=== PATIENT | female | born 1990 | race Caucasian/White ===

== ENCOUNTER 2020-04-15 20:27 | Emergency (ER) | payer BC ==
[2020-04-15] MEDS ORDERED: Lidocaine 1% 10 ML MDV INJECT ONE (20:50)
--- NOTE | 2020-04-15 20:52 | EDM.PDOC ---
ED HPI GENERAL MEDICAL PROBLEM - General Chief Complaint: Laceration Stated Complaint: HAND LAC Time Seen by Provider: 04/15/20 20:35 Source of Information: Reports: Patient, RN Notes Reviewed - History of Present Illness INITIAL COMMENTS - FREE TEXT/NARRATIVE: 29 yr old female suffered lac injury R hand playing softball a short time ago. Ball hit hand with resultant lac web space 4th and 5th fingers. Good finger ROM. She does not feel like anything is broken. UTD with tetanus. Right Finger-Little Pain Score (Numeric/FACES): 1 - Related Data Allergies Allergy/AdvReac Type Severity Reaction Status Date / Time No Known Allergies Allergy Verified 04/15/20 20:37 Past Medical History Cardiovascular History: Reports: Heart Murmur Respiratory History: Reports: Asthma - Past Surgical History HEENT Surgical History: Reports: Oral Surgery Social & Family History - Tobacco Use Smoking Status *Q: Never Smoker ED ROS GENERAL - Review of Systems Review Of Systems: See Below Constitutional: Reports: No Symptoms HEENT: Reports: No Symptoms Respiratory: Denies: Shortness of Breath GI/Abdominal: Reports: No Symptoms Musculoskeletal: Reports: Other (lac injury R hand). Denies: Joint Pain Skin: Reports: Other (lac injury R hand) Neurological: Denies: Numbness, Tingling, Weakness ED EXAM, NEURO - Physical Exam Exam: See Below General Appearance: Alert, No Apparent Distress Head Exam: Atraumatic Neck: Supple Respiratory/Chest: No Respiratory Distress Neurological: No Motor/Sensory Deficits Extremities: Other (1 cm shallow but gaping lac injury web space rth and 5th fingers, no bony tenderness, good finger ROM) Skin Exam: Warm, Normal Color ED LACERATION PROCEDURES - Laceration/Wound Repair Right Hand Lac/wound length in cm: 1 Appearance: Linear Anesthetic Type: Local Local Anesthesia - Lidocaine (Xylocaine): 1% Plain Skin Prep: Saline Suture Size: 3-0 # of Sutures: 3 Course - Vital Signs Last Recorded V/S: Last Vital Signs Temp 97.1 F 04/15/20 20:34 Pulse 90 04/15/20 20:34 Resp 16 04/15/20 20:34 BP 153/92 H 04/15/20 20:34 Pulse Ox 97 04/15/20 20:34 - Orders/Labs/Meds Meds: Medications Discontinued Medications Generic Name Dose Route Start Last Admin Trade Name Freq PRN Reason Stop Dose Admin Lidocaine HCl 10 ml 04/15/20 20:50 04/15/20 20:55 Xylocaine 1% INJECT 04/15/20 20:51 10 ml ONETIME ONE Administration Departure - Departure Time of Disposition: 21:12 Disposition: Home, Self-Care 01 Condition: Fair Clinical Impression: Hand laceration Qualifiers: Encounter type: initial encounter Foreign body presence: without foreign body Laterality: right Qualified Code(s): S61.411A - Laceration without foreign body of right hand, initial encounter - Discharge Information Instructions: Laceration Care, Adult, [id number] Referrals: Jen Mascorro [facility] [Primary Care Provider] - Forms: ED Department Discharge Additional Instructions: laceration care instr. Stitches out in about 10 days. Try avoid further injury. Have rechecked any sign of infection. Sepsis Event Note (ED) - Evaluation Sepsis Screening Result: No Definite Risk - Focused Exam Vital Signs: Vital Signs Temp Pulse Resp BP Pulse Ox 04/15/20 20:34 97.1 F 90 16 153/92 H 97
== END 2020-04-15 21:20 | disposition home or self-care (01) ==
LOC: JD.ED 20:27
DX: S61.411A Laceration without foreign body of right hand, initial encounter (principal); W21.07XA Struck by softball, initial encounter; Y93.64 Activity, baseball
CPT/HCPCS: 12001; 99282; J2001

== ENCOUNTER 2022-07-27 12:09 | Inpatient (IN) | payer OTHER ==
[2022-07-27] MEDS: Misoprostol 25 MCG (1/4 of 100 MCG) Tab VAG PRN ×3 (12:09→20:01)
[2022-07-27] MEDS ORDERED: Nalbuphine HCl 10 MG/ 1ML Amp IVPUSH PRN (12:15)
[2022-07-27] MEDS ORDERED: Oxytocin/Lactated Ringers 10 UNIT/1,000 ML BAG IV SCH (12:15)
[2022-07-27] MEDS ORDERED: Lactated Ringers 1,000 ML IV SCH (12:15)
[2022-07-27] MEDS ORDERED: Ondansetron 4 MG/2 ML SDV IVPUSH PRN (12:15)
[2022-07-27] MEDS ORDERED: Sodium Chloride 0.9% 10 ML Syringe FLUSH PRN (12:15)
[2022-07-27] MEDS ORDERED: diphenhydrAMINE 50 MG/ML SDV IVPUSH PRN (14:22)
[2022-07-27] MEDS ORDERED: fentaNYL 100 MCG/2 ML SDV EPIDUR PRN (14:22)
[2022-07-27] MEDS ORDERED: Bupivacaine/fentaNYL/NS 100 ML Bag EPIDUR PRN (14:22)
[2022-07-27] MEDS ORDERED: ePHEDrine 50 MG/ML SDV IVPUSH PRN (14:22)
[2022-07-28] MEDS: Misoprostol 25 MCG (1/4 of 100 MCG) Tab VAG PRN (00:01)
[2022-07-28] MEDS ORDERED: Ampicillin 2 GM in Sodium Chloride 0.9% 100 ML IV ONE (00:30)
[2022-07-28] MEDS ORDERED: Ampicillin 2 GM Vial ONE (03:48)
[2022-07-28] MEDS ORDERED: Sodium Chloride 0.9% 100 ML ONE (03:49)
[2022-07-28] MEDS: Oxytocin/Lactated Ringers 10 UNIT/1,000 ML BAG IV SCH ×2 (04:09→15:19)
[2022-07-28] MEDS: Ampicillin 1 GM in Sodium Chloride 0.9% 100 ML IV SCH ×2 (09:45→13:44)
[2022-07-28] MEDS: Sodium Chloride 0.9% 10 ML Syringe FLUSH SCH (12:01)
[2022-07-28] MEDS ORDERED: Citric Acid/Sodium Citrate Solution 30 ML Cup PO ONE (16:49)
[2022-07-28] MEDS ORDERED: ceFAZolin 2 GM in Sodium Chloride 0.9% 50 ML IV ONE (16:49)
[2022-07-28] MEDS ORDERED: Azithromycin 500 MG in Sodium Chloride 0.9% 250 ML IV ONE (16:49)
[2022-07-28] MEDS ORDERED: Metoclopramide 10 MG/2 ML SDV IVPUSH ONE (16:49)
[2022-07-28] MEDS ORDERED: Metoclopramide 10 MG/2 ML SDV ONE (16:51)
[2022-07-28] MEDS ORDERED: Citric Acid/Sodium Citrate Solution 30 ML Cup ONE (16:51)
[2022-07-28] MEDS ORDERED: Morphine PF 10 MG/10 ML SDV ONE (16:55)
[2022-07-28] MEDS ORDERED: ceFAZolin 2 GM Vial ONE (17:05)
[2022-07-28] MEDS ORDERED: Ondansetron 4 MG/2 ML SDV ONE (17:18)
[2022-07-28] MEDS ORDERED: Lactated Ringers 1,000 ML ONE (17:18)
[2022-07-28] MEDS ORDERED: Dexamethasone 4 MG/ML SDV ONE (17:33)
[2022-07-28] MEDS ORDERED: Misoprostol 200 MCG Tab ONE (17:35)
[2022-07-28] MEDS ORDERED: Carboprost Tromethamine 250 MCG/1 ML Amp ONE (17:37)
[2022-07-28] MEDS ORDERED: Phenylephrine HCl In 0.9% NaCl 1 MG/10 ML Vial ONE (17:42)
[2022-07-28] MEDS ORDERED: ePHEDrine 50 MG/ML SDV ONE (17:43)
[2022-07-28] MEDS ORDERED: Ampicillin 1 GM in Sodium Chloride 0.9% 100 ML IV SCH (17:44)
[2022-07-28] MEDS ORDERED: Ketorolac 30 MG/ML SDV ONE (17:54)
[2022-07-28] MEDS ORDERED: Tranexamic Acid 1,000 MG/10 ML Vial ONE (17:56)
[2022-07-28] MEDS ORDERED: Meperidine 50 MG/ML Vial IVPUSH PRN (18:10)
[2022-07-28] MEDS ORDERED: fentaNYL 100 MCG/2 ML SDV IVPUSH PRN (18:10)
[2022-07-28] MEDS ORDERED: diphenhydrAMINE 50 MG/ML SDV IVPUSH PRN ×2 (18:10→18:16)
[2022-07-28] MEDS ORDERED: Ondansetron 4 MG/2 ML SDV IVPUSH PRN (18:10)
[2022-07-28] MEDS ORDERED: Docusate Sodium 100 MG Cap PO PRN (18:16)
[2022-07-28] MEDS ORDERED: Ondansetron 4 MG/2 ML SDV IV PRN (18:16)
[2022-07-28] MEDS ORDERED: Acetaminophen/oxyCODONE 325-5 MG Tab PO PRN ×2 (18:16)
[2022-07-28] MEDS ORDERED: Dextrose 5%-Lactated Ringers 1,000 ML IV SCH (18:16)
[2022-07-28] MEDS ORDERED: ePHEDrine 50 MG/ML SDV IVPUSH PRN (18:16)
[2022-07-28] MEDS ORDERED: Naloxone 0.4 MG/ML SDV IVPUSH PRN (18:16)
[2022-07-29] MEDS: Ketorolac 30 MG/ML SDV IVPUSH SCH ×3 (00:10→13:50)
[2022-07-29] MEDS: Enoxaparin 40 MG/0.4 ML Syringe SUBCUT SCH (10:26)
[2022-07-29] MEDS: Ibuprofen 600 MG Tab PO PRN (20:54)
[2022-07-30] MEDS: Ibuprofen 600 MG Tab PO PRN ×3 (02:49→15:59)
[2022-07-30] MEDS: Enoxaparin 40 MG/0.4 ML Syringe SUBCUT SCH (08:52)
[2022-07-31] MEDS: Ibuprofen 600 MG Tab PO PRN ×2 (03:59→11:04)
[2022-07-31] MEDS: Enoxaparin 40 MG/0.4 ML Syringe SUBCUT SCH (11:05)
== END 2022-07-31 12:40 | disposition home or self-care (01) | DRG 787 ==
LOC: JD.OBCHECK 12:09 → JD.OB 12:11 → JD.OBCHECK 16:20 → OBSVTOIN 07-28 17:29 → JD.OB 07-28 17:30
PROVIDERS: ADMIT Obstetrics & Gynecology; ATTEND Obstetrics & Gynecology
PROC: 10D00Z1 Extraction of Products of Conception, Low, Open Approach (ICD-10-PCS; principal; 2022-07-28)
PROC: 10H07YZ Insertion of Other Device into Products of Conception, Via Natural or Artificial Opening (ICD-10-PCS; 2022-07-28)
PROC: 10907ZC Drainage of Amniotic Fluid, Therapeutic from Products of Conception, Via Natural or Artificial Opening (ICD-10-PCS; 2022-07-28)
PROC: 3E0P7VZ Introduction of Hormone into Female Reproductive, Via Natural or Artificial Opening (ICD-10-PCS; 2022-07-28)
PROC: 3E033VJ Introduction of Other Hormone into Peripheral Vein, Percutaneous Approach (ICD-10-PCS; 2022-07-28)
PROC: 3E0R3BZ Introduction of Anesthetic Agent into Spinal Canal, Percutaneous Approach (ICD-10-PCS; 2022-07-28)
DX: O14.04 Mild to moderate pre-eclampsia, complicating childbirth (principal); D68.51 Activated protein C resistance; O99.12 Other diseases of the blood and blood-forming organs and certain disorders involving the immune mechanism complicating childbirth; Z3A.38 38 weeks gestation of pregnancy; Z37.0 Single live birth; O99.824 Streptococcus B carrier state complicating childbirth; O99.52 Diseases of the respiratory system complicating childbirth; J45.909 Unspecified asthma, uncomplicated; O72.1 Other immediate postpartum hemorrhage
CPT/HCPCS: 36415; 59025; 82565; 82570; 84156; 84450; 84460; 85027; 86592; 86850; 86900; 86901; 94762; A9270-GY; C1726; J0290; J0456; J0690; J1100; J1650; J1885; J2274; J2405; J2590; J2765; J7050; J7120; J7121

== ENCOUNTER 2024-02-14 05:42 | Inpatient (IN) | payer OTHER ==
[~2024-02-14 05:42] MED LIST: Citric Acid/Sodium Citrate Solution 30 ML Cup PO ONE; Lactated Ringers 1,000 ML IV SCH; Metoclopramide 10 MG/2 ML SDV IVPUSH ONE; Oxytocin/Lactated Ringers 30 UNIT/500 ML BAG IV SCH; Sodium Chloride 0.9% 10 ML Syringe FLUSH PRN
[2024-02-14] MEDS ORDERED: Oxytocin/Lactated Ringers 30 UNIT/500 ML BAG IV SCH (06:00)
[2024-02-14 06:03] LABS: BASOPHILS PERCENT AUTO 0.2 % (0.0-1.0); EOSINOPHILS PERCENT AUTO 0.4 % (0.0-6.0); HEMATOCRIT 40.1 % (37.0-47.0); HEMOGLOBIN 13.3 gm/dl (12.0-16.0); IMMATURE GRAN ABSOLUTE AUTO 0.05 K/mm3 (0.00-0.05); IMMATURE GRAN PERCENT AUTO 0.6 % (0.0-0.4); LYMPHOCYTES ABSOLUTE AUTO 2.6 K/mm3 (1.0-4.8); LYMPHOCYTES PERCENT AUTO 28.2 % (24.0-44.0); MEAN CORPUSCULAR HGB CONC 33.2 g/dl (32.0-36.0); MEAN CORPUSCULAR VOLUME 90.5 fl (83.0-99.0); MEAN PLATELET VOLUME 10.3 fl (9.4-12.3); MONOCYTES ABSOLUTE AUTO 0.8 K/mm3 (0.0-0.8); MONOCYTES PERCENT AUTO 8.9 % (0.0-8.0); NEUTROPHILS ABSOLUTE AUTO 5.6 K/mm3 (1.8-7.7); NEUTROPHILS PERCENT AUTO 61.7 % (41.0-71.0); PLATELET COUNT,PLT 164 K/mm3 (150-400); RED BLOOD CELL COUNT 4.43 M/mm3 (4.10-5.30); WHITE BLOOD CELL COUNT,WBC 9.03 K/mm3 (3.9-11.3)
[2024-02-14] MEDS: Lactated Ringers 1,000 ML IV SCH (06:25)
[2024-02-14] MEDS ORDERED: Morphine PF 10 MG/10 ML SDV ONE (06:58)
[2024-02-14] MEDS ORDERED: Lactated Ringers 1,000 ML ONE (06:58)
[2024-02-14] MEDS ORDERED: Ondansetron 4 MG/2 ML SDV ONE (06:58)
[2024-02-14] MEDS ORDERED: Ketorolac 30 MG/ML SDV ONE (06:58)
[2024-02-14] MEDS: Metoclopramide 10 MG/2 ML SDV IVPUSH ONE (07:01)
[2024-02-14] MEDS: Citric Acid/Sodium Citrate Solution 30 ML Cup PO ONE (07:01)
[2024-02-14] MEDS ORDERED: ceFAZolin 2 GM Vial ONE (07:04)
[2024-02-14] MEDS ORDERED: fentaNYL 100 MCG/2 ML SDV IVPUSH PRN (07:12)
[2024-02-14] MEDS ORDERED: Meperidine 50 MG/ML Vial IVPUSH PRN (07:12)
[2024-02-14] MEDS ORDERED: diphenhydrAMINE 50 MG/ML SDV IVPUSH PRN ×2 (07:12→08:41)
[2024-02-14] MEDS ORDERED: Ondansetron 4 MG/2 ML SDV IVPUSH PRN (07:12)
[2024-02-14] MEDS ORDERED: Naloxone 0.4 MG/ML SDV IVPUSH PRN (08:41)
[2024-02-14] MEDS ORDERED: Sodium Chloride 0.9% 10 ML Syringe FLUSH PRN (08:41)
[2024-02-14] MEDS ORDERED: Ondansetron 4 MG/2 ML SDV IV PRN (08:41)
[2024-02-14] MEDS ORDERED: Sodium Chloride 0.9% 10 ML Syringe FLUSH SCH (09:00)
[2024-02-14] MEDS: Acetaminophen/oxyCODONE 325-5 MG Tab PO PRN (12:29)
[2024-02-14] MEDS: Ketorolac 30 MG/ML SDV IVPUSH SCH (14:57)
[2024-02-14] MEDS: Dextrose 5%-Lactated Ringers 1,000 ML IV SCH (14:58)
[2024-02-14] MEDS: Enoxaparin 40 MG/0.4 ML Syringe SUBCUT SCH (17:02)
[2024-02-14] MEDS: ceFAZolin 2 GM in Sodium Chloride 0.9% 50 ML IV ONE (20:24)
[2024-02-15 06:08] LABS: HEMATOCRIT 27.1 % (37.0-47.0); HEMOGLOBIN 8.9 gm/dl (12.0-16.0); MEAN CORPUSCULAR HEMOGLOBIN 29.9 pg (28.0-32.0); MEAN CORPUSCULAR HGB CONC 32.8 g/dl (32.0-36.0); MEAN CORPUSCULAR VOLUME 90.9 fl (83.0-99.0); MEAN PLATELET VOLUME 10.9 fl (9.4-12.3); PLATELET COUNT,PLT 118 K/mm3 (150-400); RED BLOOD CELL COUNT 2.98 M/mm3 (4.10-5.30); WHITE BLOOD CELL COUNT,WBC 7.57 K/mm3 (3.9-11.3)
[2024-02-15] MEDS: Ibuprofen 600 MG Tab PO SCH (10:11)
[2024-02-15] MEDS: Acetaminophen/oxyCODONE 325-5 MG Tab PO PRN (12:02)
[2024-02-15] MEDS: Docusate Sodium 100 MG Cap PO PRN (15:20)
== END 2024-02-15 18:45 | disposition home or self-care (01) | DRG 787 ==
LOC: JD.OB 05:42
PROVIDERS: ADMIT Obstetrics & Gynecology; ATTEND Obstetrics & Gynecology
PROC: 10D00Z1 Extraction of Products of Conception, Low, Open Approach (ICD-10-PCS; principal; 2024-02-14 08:00)
DX: O48.0 Post-term pregnancy (principal); D68.51 Activated protein C resistance; O99.12 Other diseases of the blood and blood-forming organs and certain disorders involving the immune mechanism complicating childbirth; Z37.0 Single live birth; O34.211 Maternal care for low transverse scar from previous cesarean delivery; Z3A.40 40 weeks gestation of pregnancy
CPT/HCPCS: 01961; 36415; 59025; 85025; 85027; 86592; 86850; 86900; 86901; A9270-GY; J0690; J1650; J1885; J2274; J2405; J2765; J7120; J7121; J7999